=== PATIENT | male | born 1985 | race Caucasian/White ===

== ENCOUNTER 2016-04-01 16:28 | Emergency (ER) | payer MEDICARE, MEDICAID ==
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
[2016-04-01] MEDS ORDERED: HYDROCODONE/ACETAMINOPHEN 5-325 MG 6 TAB/DSPK PO PRN (18:38)
[2016-04-01] MEDS ORDERED: SULFAMETHOXAZOLE/TRIMETHOPRIM 800-160 MG TABLET PO ONE (18:38)
[2016-04-01] MEDS ORDERED: CEPHALEXIN 500 MG CAPSULE PO ONE (18:38)
[2016-04-01] MEDS ORDERED: DIPH/PERTUSS(ACELL)/TETANUS VAC/PF 0.5 ML SYR (>=10YO) IM ONE (18:39)
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
[2016-04-01 19:08] VITALS: BP 151/93
== END 2016-04-01 19:06 | disposition home or self-care (01) ==
LOC: ER 16:28
DX: S00.31XA Abrasion of nose, initial encounter (principal); L08.9 Local infection of the skin and subcutaneous tissue, unspecified; W19.XXXA Unspecified fall, initial encounter; Y92.59 Other trade areas as the place of occurrence of the external cause; E11.9 Type 2 diabetes mellitus without complications; F17.200 Nicotine dependence, unspecified, uncomplicated; I10 Essential (primary) hypertension; Z88.0 Allergy status to penicillin
CPT/HCPCS: 99283; 90471; 90715; A9270 ×3

== ENCOUNTER 2016-04-08 10:26 | Emergency (ER) | payer MEDICARE, MEDICAID ==
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
[2016-04-08] MEDS ORDERED: OXYCODONE-ACETAMINOPHEN 5-325 MG TABLET PO ONE (11:44)
[2016-04-08] MEDS ORDERED: ONDANSETRON 4 MG TAB.RAPDIS PO ONE (11:44)
[2016-04-08 12:34] LABS: ABSOLUTE BASOPHILS # (AUTO) 0.1 10^3/uL (0.0-0.2); ABSOLUTE EOSINOPHILS # (AUTO) 0.3 10^3/uL (0.0-0.6); ABSOLUTE LYMPHOCYTES (AUTO) 2.4 10^3/uL (0.5-4.7); ABSOLUTE MONOCYTES (AUTO) 1.4 10^3/uL (0.1-1.4); ABSOLUTE NEUT (AUTO) 7.6 10^3/uL (1.7-8.2); BASOPHILS % (AUTO) 0.9 % (0-2); EOSINOPHILS % (AUTO) 2.3 % (0-6); HEMOGLOBIN 12.5 g/dL (13.5-17.0); HGB HCT DIFFERENCE -0.5; LYMPHOCYTES % (AUTO) 20.1 % (13-45); MEAN CORPUSCULAR HGB CONC 32.8 g/dL (32.0-36.0); MEAN CORPUSCULAR VOLUME 88 fl (80-97); MONOCYTES % (AUTO) 11.7 % (3-13); RED CELL DISTRIBUTION WIDTH 13.8 % (11.5-14.0); WHITE BLOOD COUNT 11.7 10^3/uL (4.0-10.5)
[2016-04-08 12:58] LABS: ALANINE AMINOTRANSFERASE 109 U/L (21-72); ALBUMIN 3.8 g/dL (3.5-5.0); ALKALINE PHOSPHATASE 89 U/L (38-126); ANION GAP 14 (5-19); ASPARTATE AMINO TRANSFERASE 68 U/L (17-59); BILIRUBIN,TOTAL 0.3 mg/dL (0.2-1.3); BLOOD UREA NITROGEN 14 mg/dL (7-20); CALCIUM 9.4 mg/dL (8.4-10.2); CARBON DIOXIDE 26 mmol/L (22-30); CHLORIDE 102 mmol/L (98-107); GLUCOSE 146 mg/dL (75-110); POTASSIUM 4.1 mmol/L (3.6-5.0); SODIUM 141.5 mmol/L (137-145); TOTAL PROTEIN 7.2 g/dL (6.3-8.2)
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
[2016-04-08] MEDS ORDERED: CLINDAMYCIN HCL 150 MG CAPSULE PO ONE (15:21)
[2016-04-08 15:41] VITALS: BP 126/79
== END 2016-04-08 15:40 | disposition home or self-care (01) ==
LOC: ER 10:26
DX: S02.2XXG Fracture of nasal bones, subsequent encounter for fracture with delayed healing (principal); R22.0 Localized swelling, mass and lump, head; F17.210 Nicotine dependence, cigarettes, uncomplicated; L03.211 Cellulitis of face; X58.XXXD Exposure to other specified factors, subsequent encounter; Y09 Assault by unspecified means
CPT/HCPCS: 99284; 36415; 85025; 80053; 70487; A9270 ×3; S0119